=== PATIENT | male | born 1960 | race Hispanic/Latino ===

== ENCOUNTER 2020-02-09 17:00 | Emergency (ER) | payer OTHER | END 2020-02-09 18:34 | disposition home or self-care (01) | LOC: EDH 17:00 | DX: S83.412A Sprain of medial collateral ligament of left knee, initial encounter (principal); Z72.0 Tobacco use; Z98.890 Other specified postprocedural states; W01.198A Fall on same level from slipping, tripping and stumbling with subsequent striking against other object, initial encounter; Y93.89 Activity, other specified; Y92.89 Other specified places as the place of occurrence of the external cause; Y99.8 Other external cause status | CPT/HCPCS: 73562 ==

== ENCOUNTER 2021-03-10 13:21 | Emergency (ER) | payer SELFPAY ==
[~2021-03-10] VITALS: Ht 167.6 cm; Wt 74.8 kg
[2021-03-10] MEDS ORDERED: KETOROLAC 60 MG VIAL (30MG/ML) IM ONE (13:30)
[2021-03-10] MEDS ORDERED: MELO7.5T12 PO (14:35)
[2021-03-10 14:44] VITALS: BP 126/76
== END 2021-03-10 14:49 | disposition home or self-care (01) ==
LOC: EDH 13:21
DX: M17.12 Unilateral primary osteoarthritis, left knee (principal); Z88.2 Allergy status to sulfonamides; Z79.1 Long term (current) use of non-steroidal anti-inflammatories (NSAID)
CPT/HCPCS: 73562; 73590; 96372; 99284; J1885

== ENCOUNTER 2021-03-13 10:12 | Emergency (ER) | payer SELFPAY ==
[~2021-03-13] VITALS: Ht 167.6 cm; Wt 72.6 kg
[~2021-03-13 10:12] MED LIST: MELO7.5T12 PO
[2021-03-13 11:26] LABS: BASOPHILS % (AUTO) 1.2 % (0.0-5.0); EOSINOPHILS % (AUTO) 10.5 % (0.0-8.0); LYMPHOCYTES % (AUTO) 30.7 % (21.0-51.0); MEAN CORPUSCULAR HEMOGLOBIN 26.7 pg (27.0-33.0); MEAN CORPUSCULAR VOLUME 86.3 fL (79-99); MONOCYTES % (AUTO) 11.5 % (3.0-13.0); NEUTROPHILS % (AUTO) 45.9 % (40.0-77.0); PLATELET COUNT (AUTO) 293 K/uL (130-400); RED BLOOD CELL COUNT(AUTO) 4.75 MIL/uL (4.50-6.20); RED CELL DISTRIBUTION WIDTH 15.3 % (11.0-15.5); WHITE BLOOD COUNT (AUTO) 5.1 K/uL (4.8-10.8)
[2021-03-13] MEDS ORDERED: MORPHINE 2 MG SYG IM ONE (11:30)
[2021-03-13 11:34] LABS: CREATININE 1.3 mg/dL (0.5-1.5); POTASSIUM 4.1 mmol/L (3.5-5.1)
[2021-03-13 11:39] LABS: ALBUMIN 3.2 g/dL (3.5-5.0); BILIRUBIN,TOTAL 0.2 mg/dL (0.2-1.0); TOTAL PROTEIN, SERUM 6.6 g/dL (6.0-8.3)
[2021-03-13] MEDS ORDERED: MORPHINE 2 MG SYG IVP SCH (12:00)
[2021-03-13 12:31] LABS: ERYTHROCYTE SEDIMENTATION RATE 3 MM/HR (0-20)
[2021-03-13] MEDS ORDERED: KETOROLAC 30MG VIAL (30MG/ML) IV ONE (14:30)
[2021-03-13] MEDS ORDERED: ORPHENADRINE CITRATE 30 MG/ML ML IM ONE (14:30)
[2021-03-13] MEDS ORDERED: DEXAMETHASONE SOD PHOSPHATE 4 MG/ML 1ML VIAL IVP SCH (14:30)
[2021-03-13 14:44] VITALS: BP 138/60
[2021-03-13] MEDS ORDERED: METH4TAB3 PO (16:45)
[2021-03-13] MEDS ORDERED: CYCL-309 PO (16:45)
== END 2021-03-13 17:01 | disposition home or self-care (01) ==
LOC: EDH 10:12
DX: M54.32 Sciatica, left side (principal); M54.6 Pain in thoracic spine; R22.42 Localized swelling, mass and lump, left lower limb; F17.200 Nicotine dependence, unspecified, uncomplicated; Z79.1 Long term (current) use of non-steroidal anti-inflammatories (NSAID); Z88.2 Allergy status to sulfonamides
CPT/HCPCS: 36415; 72131; 73502; 80053; 82550; 85025; 85651; 86140; 93971; 96372; 96374; 96375; 99285; J1100; J1885; J2360